=== PATIENT | female | born 1950 ===

== ENCOUNTER 2017-02-26 09:44 | Emergency (ER) | payer MEDICARE, MEDICAID ==
[2017-02-26 09:47] VITALS: PULSE 70; TEMP 97.8; BMI 27.8
--- NOTE | 2017-02-26 10:03 | ED PDOC ---
HPI: General Adult Time Seen by Provider: 02/26/17 09:48 Chief Complaint (Nursing): ENT Problem Chief Complaint (Provider): Nose Bleed History Per: Patient History/Exam Limitations: no limitations Onset/Duration Of Symptoms: Days (x 2 days) Current Symptoms Are (Timing): Gone Now Additional Complaint(s): 66 y/o female with past medical history of atrial fibrillation and cerebrovascular accident presents to the ED with EMS complaining of right side nose bleed that occurred last night and reoccurred this morning and stopped prior to arrival. Patient is on Coumadin. She denies any further medical complaints. Past Medical History Reviewed: Historical Data, Nursing Documentation, Vital Signs Vital Signs: Last Vital Signs Temp 97.8 F 02/26/17 09:46 Pulse 70 02/26/17 09:46 Resp 20 02/26/17 09:46 BP 147/72 02/26/17 09:46 Pulse Ox 98 02/26/17 10:15 - Medical History PMH: Atrial Fibrillation, CVA - Family History Family History: States: Unknown Family Hx - Home Medications Home Medications: Ambulatory Orders Medication Instructions Recorded Enalapril Maleate [Vasotec] 1 tab PO DAILY 02/26/17 Levothyroxine [Synthroid] 1 tab PO DAILY 02/26/17 Warfarin [Coumadin] 1 tab PO QOTHERDAY 02/26/17 - Allergies Allergies/Adverse Reactions: Allergies Allergy/AdvReac Type Severity Reaction Status Date / Time morphine Allergy RASH Verified 02/26/17 10:12 Penicillins Allergy RASH Verified 02/26/17 10:12 povidone-iodine Allergy RASH Verified 02/26/17 10:12 [From Betadine] soap [From Betadine] Allergy RASH Verified 02/26/17 10:12 Sulfa (Sulfonamide Allergy RASH Verified 02/26/17 10:12 Antibiotics) Review of Systems ROS Statement: Except As Marked, All Systems Reviewed And Found Negative (As per HPI, otherwise negative) ENT: Positive for: Other (Nose bleed) Physical Exam - Reviewed Nursing Documentation Reviewed: Yes Vital Signs Reviewed: Yes - Physical Exam Appears: Positive for: Non-toxic, No Acute Distress Head Exam: Positive for: ATRAUMATIC, NORMOCEPHALIC Skin: Negative for: Normal Color (Minor ecchymosis on arms bilaterally) Eye Exam: Positive for: EOMI, Normal appearance, PERRL ENT: Positive for: Other (dry blood in nose bilaterally, no active bleeding) Cardiovascular/Chest: Positive for: Regular Rate, Rhythm. Negative for: Murmur Respiratory: Positive for: Normal Breath Sounds. Negative for: Respiratory Distress Gastrointestinal/Abdominal: Positive for: Normal Exam, Bowel Sounds, Soft. Negative for: Tenderness Back: Positive for: Normal Inspection. Negative for: L CVA Tenderness, R CVA Tenderness, Vertebral Tenderness Extremity: Positive for: Normal ROM. Negative for: Pedal Edema, Deformity Neurologic/Psych: Positive for: Alert, Oriented (x3) - Laboratory Results Result Diagrams: 02/26/17 10:00 02/26/17 10:00 - ECG O2 Sat by Pulse Oximetry: 98 (RA) Pulse Ox Interpretation: Normal Medical Decision Making Medical Decision Making: Time: 09:12 Initial Impression: headache and non-compliant hemodialysis Plan: CMP CBC w/ diff PT/INR Reevaluation Scribe Attestation: Documented by Ant Keith acting as a scribe for José Miguel Morris MD. Scribe Attestation: All medical record entries made by the Scribe were at my direction and personally dictated by me. I have reviewed the chart and agree that the record accurately reflects my personal performance of the history, physical exam, medical decision making, and the department course for this patient. I have also personally directed, reviewed, and agree with the discharge instructions and disposition. Disposition - Clinical Impression Clinical Impression: Epistaxis - Patient ED Disposition Is Patient to be Admitted: No Counseled Patient/Family Regarding: Studies Performed, Diagnosis, Need For Followup - Disposition Referrals: Paco Alvarez MD [Staff Provider] - Disposition: Routine/Home Disposition Time: 10:46 Condition: FAIR Instructions: Nosebleed (ED) Forms: [employer] (Surinamese)
[2017-02-26 10:17] LABS: BASO # 0.1 K/uL (0.0-0.2); BASO % 1.2 % (0.0-2.0); EOS # 0.2 K/uL (0.0-0.7); LYMPH # 1.5 K/uL (1.0-4.3); LYMPH % 24.6 % (20.0-40.0); MEAN CELL VOLUME 89.7 fl (81.0-99.0); MEAN CORPUSCULAR HEMOGLOBIN 30.3 pg (27.0-31.0); MEAN CORPUSCULAR HGB CONC 33.8 g/dL (33.0-37.0); MEAN PLATELET VOLUME 9.9 fl (7.2-11.7); MONO # 0.6 K/uL (0.0-0.8); MONO % 10.4 % (0.0-10.0); NEUT # 3.7 K/uL (1.8-7.0); NEUT % 59.8 % (50.0-75.0); NRBC % 0.1 % (0.0-0.0); RED CELL DISTRIBUTION WIDTH 14.6 % (11.5-14.5); WHITE BLOOD COUNT 6.2 K/uL (4.8-10.8)
[2017-02-26 10:28] LABS: CALCIUM 8.7 mg/dL (8.4-10.2); CARBON DIOXIDE 23 mmol/L (22-30); CHLORIDE 111 mmol/L (98-107); GFR AFRICAN-AMERICAN > 60; GLUCOSE,RANDOM 128 mg/dL (65-105); SODIUM 142 mmol/l (132-148)
[2017-02-26 10:31] LABS: BLOOD UREA NITROGEN 10 mg/dl (7-17); TOTAL PROTEIN 7.9 G/DL (6.3-8.2)
[2017-02-26 10:32] LABS: ALB/GLOB RATIO 1.1 (1.0-2.1); ALKALINE PHOSPHATASE 92 U/L (38-126); ALT/SGPT 23 U/L (9-52); AST/SGOT 55 U/L (14-36)
[2017-02-26 10:33] LABS: BILIRUBIN,TOTAL 2.3 mg/dl (0.2-1.3)
[2017-02-26 10:39] LABS: POTASSIUM 4.8 MMOL/L (3.6-5.0)
[2017-02-26 11:30] VITALS: BP 137/77; RESP 18; O2SAT 97
[2017-02-26] MEDS ORDERED: Silver Nitrate Topical - Stick ONE (14:23)
[2017-02-26] MEDS ORDERED: Phenylephrine 0.5% Nasal Spray NAS ONE (14:42)
== END 2017-02-26 11:50 | disposition home or self-care (01) ==
LOC: H.ER 09:44
DX: R04.0 Epistaxis (principal)

== ENCOUNTER 2017-02-26 13:59 | Emergency (ER) | payer MEDICARE, MEDICAID ==
[2017-02-26 13:59] VITALS: BMI 27.8
[2017-02-26 14:06] VITALS: RESP 18
[2017-02-26] MEDS ORDERED: Silver Nitrate Topical - Stick TOP ONE (14:47)
--- NOTE | 2017-02-26 14:57 | ED PDOC ---
HPI: General Adult Time Seen by Provider: 02/26/17 14:07 Chief Complaint (Nursing): ENT Problem History Per: Patient Additional Complaint(s): Pt. states for the past several days she's had intermittent nose bleeding. Today she was unable to stop the bleeding so she came to ED this morning and had blood work done which was normal and reports that by the time she came to ED her bleeding had stopped therefore she did not require cauterization. Also states that while at home R nostril began to bleed once again prompting 2nd ED visit. Denies head injury, headache, weakness, chest pain, palpitations. Past Medical History Reviewed: Historical Data, Nursing Documentation, Vital Signs Vital Signs: Last Vital Signs Temp 97.6 F 02/26/17 15:55 Pulse 72 02/26/17 15:55 Resp 18 02/26/17 15:55 BP 130/76 02/26/17 15:55 Pulse Ox 98 02/26/17 15:55 - Medical History PMH: Atrial Fibrillation, CVA, Hypothyroidism - Surgical History Surgical History: Cholecystectomy, Pacemaker - Family History Family History: States: Unknown Family Hx - Home Medications Home Medications: Ambulatory Orders Medication Instructions Recorded Clindamycin [Cleocin] 300 mg PO BID #6 cap 02/26/17 Enalapril Maleate [Vasotec] 1 tab PO DAILY 02/26/17 Levothyroxine [Synthroid] 75 mcg PO DAILY 02/26/17 Warfarin [Coumadin] 1 tab PO QOTHERDAY 02/26/17 - Allergies Allergies/Adverse Reactions: Allergies Allergy/AdvReac Type Severity Reaction Status Date / Time morphine Allergy RASH Verified 02/26/17 10:12 Penicillins Allergy RASH Verified 02/26/17 10:12 povidone-iodine Allergy RASH Verified 02/26/17 10:12 [From Betadine] soap [From Betadine] Allergy RASH Verified 02/26/17 10:12 Sulfa (Sulfonamide Allergy RASH Verified 02/26/17 10:12 Antibiotics) Review of Systems ROS Statement: Except As Marked, All Systems Reviewed And Found Negative Physical Exam - Physical Exam Appears: Positive for: Well, Non-toxic, No Acute Distress Skin: Positive for: Normal Color, Warm. Negative for: Rash ENT: Positive for: Other (R nostril bleeding noted; anterior bleeding site identified; pharynx clear) Neurologic/Psych: Positive for: Alert, Oriented - ECG O2 Sat by Pulse Oximetry: 100 - Progress ED Course And Treament: 2 silver nitrate sticks used without hemostasis. Rapid rhino placed by PA without difficulty. Pt. tolerated procedure well. Bleeding stopped. Instructed to return to ED in 24 hours for removal of rapid rhino. Disposition - Clinical Impression Clinical Impression: Epistaxis - Patient ED Disposition Is Patient to be Admitted: No - Disposition Disposition: Routine/Home Disposition Time: 15:38 Condition: STABLE Additional Instructions: Return to ED or PMD in 24 hours for removal of rapid rhino WITHOUT FAIL. Prescriptions: Clindamycin [Cleocin] 300 mg PO BID #6 cap Instructions: Nosebleed (ED) Forms: [employer] (Malay) Print Language: GREEK
[2017-02-26 15:57] VITALS: BP 130/76; PULSE 72; TEMP 97.6
[2017-02-26 19:53] VITALS: O2SAT 100
== END 2017-02-26 15:57 | disposition home or self-care (01) ==
LOC: H.ER 13:59
DX: R04.0 Epistaxis (principal); E03.9 Hypothyroidism, unspecified; I48.91 Unspecified atrial fibrillation; Z79.01 Long term (current) use of anticoagulants; Z86.73 Personal history of transient ischemic attack (TIA), and cerebral infarction without residual deficits; Z88.0 Allergy status to penicillin; Z95.0 Presence of cardiac pacemaker

== ENCOUNTER 2017-02-27 13:01 | Emergency (ER) | payer MEDICARE, MEDICAID ==
[2017-02-27 13:28] VITALS: BMI 28.0
[2017-02-27 13:32] VITALS: BP 173/85; PULSE 70; RESP 17; TEMP 97.6; O2SAT 0
--- NOTE | 2017-02-27 14:48 | ED PDOC ---
HPI: General Adult Time Seen by Provider: 02/27/17 13:43 Chief Complaint (Nursing): ENT Problem History Per: Patient Additional Complaint(s): Pt. here for rapid rhino removal from R nostil. Bleeding has stopped. Offers no complaints at this time. Past Medical History Reviewed: Historical Data, Nursing Documentation, Vital Signs Vital Signs: Last Vital Signs Temp 97.6 F 02/27/17 13:28 Pulse 70 02/27/17 13:28 Resp 17 02/27/17 13:28 BP 173/85 H 02/27/17 13:28 Pulse Ox 0 L 02/27/17 13:28 - Medical History PMH: Atrial Fibrillation, CVA, Hypothyroidism - Surgical History Surgical History: Cholecystectomy, Pacemaker - Family History Family History: States: No Known Family Hx - Home Medications Home Medications: Ambulatory Orders Medication Instructions Recorded Clindamycin [Cleocin] 300 mg PO BID #6 cap 02/26/17 Enalapril Maleate [Vasotec] 1 tab PO DAILY 02/26/17 Levothyroxine [Synthroid] 75 mcg PO DAILY 02/26/17 Warfarin [Coumadin] 1 tab PO QOTHERDAY 02/26/17 - Allergies Allergies/Adverse Reactions: Allergies Allergy/AdvReac Type Severity Reaction Status Date / Time morphine Allergy RASH Verified 02/27/17 13:28 Penicillins Allergy RASH Verified 02/27/17 13:28 povidone-iodine Allergy RASH Verified 02/27/17 13:28 [From Betadine] soap [From Betadine] Allergy RASH Verified 02/27/17 13:28 Sulfa (Sulfonamide Allergy RASH Verified 02/27/17 13:28 Antibiotics) Review of Systems ROS Statement: Except As Marked, All Systems Reviewed And Found Negative Physical Exam - Physical Exam Appears: Positive for: Well, Non-toxic, No Acute Distress Skin: Positive for: Normal Color, Warm. Negative for: Rash ENT: Positive for: Other (R nostil with rapid rhino in place) - ECG O2 Sat by Pulse Oximetry: 0 - Progress ED Course And Treament: Rapid rhino removed by PA without any bleeding incidence. Disposition - Clinical Impression Clinical Impression: Encounter for removal of nasal packing - Patient ED Disposition Is Patient to be Admitted: No - Disposition Referrals: Nicolette Brewer [Outside] Disposition: Routine/Home Disposition Time: 14:20 Condition: STABLE Instructions: Nosebleed (ED) Forms: [employer] (Maori) Print Language: SAMI
== END 2017-02-27 14:56 | disposition home or self-care (01) ==
LOC: H.ER 13:01
DX: Z48.00 Encounter for change or removal of nonsurgical wound dressing (principal); Z86.73 Personal history of transient ischemic attack (TIA), and cerebral infarction without residual deficits; Z88.0 Allergy status to penicillin; Z79.01 Long term (current) use of anticoagulants